=== PATIENT | male | born 1950 | race Caucasian/White ===

== ENCOUNTER 2016-09-04 07:57 | Outpatient (CLI) | payer MEDICARE ==
[2016-09-04 08:33] LABS: ALT (SGPT) 30 U/L (8-55); AST (SGOT) 23 U/L (5-34); Albumin 4.1 g/dL (3.4-4.8); Alkaline Phosphatase 67 U/L (40-150); Anion Gap 17 mmol/L (10-20); BUN (Urea Nitrogen) 20 mg/dL (8.4-25.7); Bilirubin, Direct 0.2 mg/dL (0.1-0.3); Bilirubin, Total 0.7 mg/dL (0.2-1.2); Calc. Creatinine Clearance 0 mL/min (70-130); Calcium 9.2 mg/dL (7.8-10.44); Carbon Dioxide 23 mmol/L (23-31); Cardiac Risk 4.8 (Less than 4.5); Chloride 106 mmol/L (98-107); Cholesterol 252 mg/dl (< 200 Desired); Estimated GFR-MDRD 85; Glucose 130 mg/dL (80-115); HDL Cholesterol 53 mg/dL (>60 Neg Risk); LDL Cholesterol, Calculated 175 mg/dL; Potassium 4.5 mmol/L (3.5-5.1); Protein, Total 7.1 g/dL (5.8-8.1); Sodium 141 mmol/L (136-145); Triglycerides 118 mg/dL (Less than 150)
== END 2016-09-04 07:58 ==
LOC: MADLABBHPM 07:57
PROVIDERS: ATTEND Family Medicine
DX: I10 Essential (primary) hypertension (principal); R73.01 Impaired fasting glucose
CPT/HCPCS: 36415; 80048; 80061; 80076; 83036

== ENCOUNTER 2017-01-08 14:22 | Outpatient (CLI) | payer MEDICARE ==
--- NOTE | 2017-01-08 16:17 | RAD ---
EXAM: CHEST 2 VIEWS: COMPARISON: 10/01/08. FINDINGS: There appears to be a left perihilar mass. Cardiac silhouette is within normal limits. Costophreni c angles are clear. Lungs are hyperinflated. No pneumothorax. IMPRESSION: Left hilar mass. Better interrogation with a chest CT is recommended. The results of the study were discussed with Dr. Prescott on 01/08/2017 at 3:09 p.m. CODE CR POS: [place]
== END 2017-01-08 14:23 | disposition home or self-care (01) ==
LOC: MADRAD 14:22
PROVIDERS: ATTEND Specialist
DX: R04.2 Hemoptysis (principal); R91.8 Other nonspecific abnormal finding of lung field
CPT/HCPCS: 71020

== ENCOUNTER 2017-04-19 22:35 | Emergency (ER) | payer MEDICARE | END 2017-04-19 23:00 | disposition left against medical advice (07) | LOC: MADERS 22:35 | DX: Z53.21 Procedure and treatment not carried out due to patient leaving prior to being seen by health care provider (principal) ==

== ENCOUNTER 2017-05-11 16:32 | Outpatient (CLI) | payer MEDICARE ==
--- NOTE | 2017-05-11 17:46 | RAD ---
LEFT SHOULDER RADIOGRAPHS THREE VIEWS 05/11/17 PROVIDED CLINICAL HISTORY: Left shoulder pain status post injury. FINDINGS: There is no evidence for fracture or other acute osseous abnormality. Alignment appears anatomic. 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 Visualized left lung field appears clear. IMPRESSION: No evidence for an acute osseous abnormality. If there is persistent clinical concern, conservative m anagement and followup imaging are advised. POS: [place]
== END 2017-05-11 16:33 | disposition home or self-care (01) ==
LOC: MADRAD 16:32
PROVIDERS: ATTEND Family Medicine
DX: S40.012A Contusion of left shoulder, initial encounter (principal)